=== PATIENT | female | born 1970 | race Caucasian/White ===

== ENCOUNTER 2020-12-15 13:58 | Emergency (ER) | payer OTHER, BC ==
[2020-12-15 14:38] VITALS: BP 128/65; PULSE 82; TEMP 97.9; BMI 24.3
[2020-12-15] MEDS ORDERED: ONDANSETRON *ODT* 4 MG TABLET SL ONE (14:59)
[2020-12-15] MEDS ORDERED: ONDANSETRON *ODT* 4 MG TABLET ONE (15:04)
[2020-12-15 17:13] LABS: BASO % 0.4 % (0-2.0); EOS % 0.5 % (0-4.5); HEMATOCRIT 36.8 % (32.4-45.2); HEMOGLOBIN 12.3 GM/dL (10.7-15.3); LYMPH % 24.3 % (8-40); MCH 26.4 pg (25.7-33.7); MCHC 33.4 g/dl (32.0-36.0); MEAN CELL VOLUME 78.9 fl (80-96); MEAN PLT VOLUME 7.9 fl (7.5-11.1); MONO % 8.7 % (3.8-10.2); NEUT % 66.1 % (42.8-82.8); PLATELET COUNT 201 K/MM3 (134-434); RBC 4.66 M/mm3 (3.60-5.2); RDW 13.8 % (11.6-15.6); WHITE BLOOD COUNT 3.5 K/mm3 (4.0-10.0)
[2020-12-15 17:21] LABS: INR 1.01 (0.83-1.09); PROTHROMBIN TIME (PATIENT) 12.4 SEC (9.7-13.0)
[2020-12-15 17:24] LABS: ACTIVATED PTT 28.2 SECONDS (25.2-36.5)
[2020-12-15 17:33] LABS: POTASSIUM 3.9 mmol/L (3.5-5.1)
[2020-12-15 17:35] LABS: ALBUMIN 3.2 g/dl (3.4-5.0); BLOOD UREA NITROGEN 9.2 mg/dL (7-18)
[2020-12-15 17:38] LABS: CREATININE 0.6 mg/dL (0.55-1.3)
[2020-12-15 17:40] LABS: BILIRUBIN,TOTAL 0.3 mg/dL (0.2-1); TOT PROT 7.5 g/dl (6.4-8.2)
== END 2020-12-15 17:50 | disposition home or self-care (01) ==
LOC: JER 13:58
DX: U07.1 COVID-19 (principal)
CPT/HCPCS: 36415; 80053; 85025; 85610; 85730; 99284-25; Q0162

== ENCOUNTER 2022-04-08 12:41 | Emergency (ER) | payer BC ==
[2022-04-08 13:04] VITALS: BMI 25.1
[2022-04-08] MEDS ORDERED: ACETAMINOPHEN 1000 MG/100 ML BAG IVPB ONE (13:56)
[2022-04-08] MEDS ORDERED: SODIUM CHLORIDE 1,000 ML IV STA (13:56)
[2022-04-08] MEDS ORDERED: METOCLOPRAMIDE HCL INJECTION 10 MG/2 ML VIAL IVPUSH ONE (13:56)
[2022-04-08] MEDS ORDERED: METOCLOPRAMIDE HCL INJECTION 10 MG/2 ML VIAL ONE (14:13)
[2022-04-08] MEDS ORDERED: ACETAMINOPHEN INJECTION 100 ML IVPB ONE (14:14)
[2022-04-08 15:56] LABS: BASO % 1.1 % (0-2.0); EOS % 0.5 % (0-4.5); HEMATOCRIT 39.9 % (32.4-45.2); HEMOGLOBIN 12.9 GM/dL (10.7-15.3); LYMPH % 26.1 % (8-40); MCH 25.1 pg (25.7-33.7); MCHC 32.3 g/dl (32.0-36.0); MEAN CELL VOLUME 77.7 fl (80-96); MEAN PLT VOLUME 9.2 fl (7.5-11.1); MONO % 5.2 % (3.8-10.2); NEUT % 67.1 % (42.8-82.8); PLATELET COUNT 275 10^3/uL (134-434); RBC 5.13 M/mm3 (3.60-5.2); RDW 14.6 % (11.6-15.6); WHITE BLOOD COUNT 6.3 K/mm3 (4.0-10.0)
[2022-04-08 16:24] LABS: CALCIUM 9.8 mg/dL (8.5-10.1)
[2022-04-08 16:25] LABS: BLOOD UREA NITROGEN 7.7 mg/dL (7-18)
[2022-04-08 16:27] LABS: CREATININE 0.6 mg/dL (0.55-1.3)
[2022-04-08 16:29] LABS: BILIRUBIN,TOTAL 0.8 mg/dL (0.2-1); TOT PROT 8.4 g/dl (6.4-8.2)
[2022-04-08 17:32] LABS: EPI CELLS 23 /uL (0-25.1); HYALINE CASTS 1 /uL (0-3.1); URINE APPEARANCE CLEAR; URINE BACTERIA 1534 /uL (0-1359); URINE BILIRUBIN NEGATIVE (NEGATIVE); URINE COLOR YELLOW; URINE GLUCOSE (UA) NEGATIVE (NEGATIVE); URINE KETONE NEGATIVE (NEGATIVE); URINE LEUK ESTERASE NEGATIVE (NEGATIVE); URINE NITRITE NEGATIVE (NEGATIVE); URINE PROTEIN NEGATIVE (NEGATIVE); URINE RBC 66 /uL (0-23.9); URINE UROBILINOGEN 0.2 mg/dL (0.2-1.0); URINE WBC 9 /uL (0-25.8)
[2022-04-08 17:57] VITALS: BP 147/91; PULSE 75; TEMP 97.9
== END 2022-04-08 18:02 | disposition home or self-care (01) ==
LOC: JER 12:41
PROC: 3E0333Z Introduction of Anti-inflammatory into Peripheral Vein, Percutaneous Approach (ICD-10-PCS; principal; 2022-04-08)
PROC: 3E033GC Introduction of Other Therapeutic Substance into Peripheral Vein, Percutaneous Approach (ICD-10-PCS; 2022-04-08)
PROC: 3E0337Z Introduction of Electrolytic and Water Balance Substance into Peripheral Vein, Percutaneous Approach (ICD-10-PCS; 2022-04-08)
DX: K52.9 Noninfective gastroenteritis and colitis, unspecified (principal)
CPT/HCPCS: 36415; 80053; 81003; 83690; 85025; 87086; 99284-25; C9803-CS; U0003; U0005